=== PATIENT | female | born 1995 | race Caucasian/White ===

== ENCOUNTER 2018-05-11 21:00 | Emergency (ER) | payer BC ==
[~2018-05-11] VITALS: Ht 165.1 cm; Wt 52.2 kg
--- NOTE | 2018-05-11 21:12 | NUR ---
PT BIBS FROM HOME FOR ABD PAIN ON AND OFF 4 DAYS; PT AAOX4, PT ONMONITOR, VSS, NAD NOTED, PENDING ER PROVIDER EVAL
[2018-05-11 21:54] LABS: BASOPHILS % (AUTO) 0.5 % (0.0-2.0); EOSINOPHILS % (AUTO) 1.9 % (0.0-6.0); HEMATOCRIT 42 % (33-45); HEMOGLOBIN 13.5 g/dL (11.5-14.8); LYMPHOCYTES # (AUTO) 1.4 /CMM (0.8-4.8); MEAN CORPUSCULAR HGB CONC 33 g/dl (31.0-36.0); MEAN CORPUSCULAR VOLUME 88 fL (82-100); MONOCYTES # (AUTO) 0.7 /CMM (0.1-1.30); MONOCYTES % (AUTO) 8.1 % (2.0-12.0); NEUTROPHILS # (AUTO) 5.9 /CMM (1.8-8.9); NEUTROPHILS % (AUTO) 72.5 % (43.0-81.0); PLATELET COUNT (AUTO) 335 /CMM (150-450); RED BLOOD CELL COUNT(AUTO) 4.72 MIL/uL (4.0-5.2); WHITE BLOOD COUNT (AUTO) 8.2 K/uL (4.3-11.0)
[2018-05-11 21:59] LABS: APPEARANCE,URINE Clear (CLEAR); BILIRUBIN,URINE Negative (NEGATIVE); BLOOD, URINE Negative Ery/uL (NEGATIVE); COLOR,URINE Yellow (YELLOW); KETONES,URINE Negative (NEGATIVE); LEUKOCYTE ESTERASE ,URINE Negative (NEGATIVE); NITRITE, URINE Negative (NEGATIVE); PROTEIN,URINE Negative (NEGATIVE); UGLUCOSE Negative (NEGATIVE); UROBILINOGEN,URINE 0.2 EU/dL (0.2)
[2018-05-11 22:10] LABS: CALCIUM, SERUM 8.8 mg/dL (8.5-10.1); CREATININE 0.8 mg/dL (0.6-1.3); POTASSIUM 3.4 mmol/L (3.5-5.1)
[2018-05-11 22:16] LABS: BILIRUBIN,TOTAL 0.2 mg/dL (0.2-1.0); TOTAL PROTEIN, SERUM 7.6 g/dL (6.4-8.2)
[2018-05-11] MEDS ORDERED: CT SWABBABLE VALVE TRANS SET 1 EA INFUS.SET MC ONE (22:32)
[2018-05-11] MEDS ORDERED: IV NS 0.9% 250 ML IV ONE (22:32)
[2018-05-11] MEDS ORDERED: IOHEXOL-300 100 ML VIAL IV ONE (22:32)
[2018-05-12 00:40] VITALS: BP 125/74
--- NOTE | 2018-05-12 00:42 | NUR ---
Patient discharged to home in stable condition. Written and verbal after care instructions given. Patient verbalizes understanding of instruction. IV removed. Catheter intact and site benign. Pressure and 4x4 applied to site. No bleeding noted.
== END 2018-05-12 00:42 | disposition home or self-care (01) ==
LOC: ER 21:00
DX: R10.31 Right lower quadrant pain (principal); Z88.0 Allergy status to penicillin
CPT/HCPCS: 36415; 80048-TC; 80076-TC; 81000-TC; 84703-TC; 85025-TC; J7050; Q9967